=== PATIENT | female | born 1960 | race Caucasian/White ===

== ENCOUNTER 2018-08-29 12:02 | Emergency (ER) | payer BC ==
--- NOTE | 2018-08-29 13:25 | ED ---
General Adult HPI - General Chief complaint: Eye Problems Stated complaint: Visual Disturbance, Headache Time Seen by Provider: 08/29/18 12:18 Source: patient, RN notes reviewed Mode of arrival: ambulatory Limitations: no limitations - History of Present Illness Initial comments: Patient is a 58-year-old female presented to the emergency room today with a chief complaint of headache and visual change. Patient does admit that 2 days ago she noticed that she had a halo type appearance on the lateral portion of the left eye. She states that her last a few hours and then eventually went away. She states that today she woke up with a migraine headache. She states the migraine is consistent with migraine headaches that she's had in the past. She states she's had some nausea, photosensitivity a long with a headache. She states is consistent with her migraines. She states approximately at 12:00 she began noticing the visual changes that she experienced 2 days ago. She states again she was experiencing a halo and blurriness out of the lateral portion of the left eye. Patient states that she did take her migraine medication of Fioricet along with an aspirin. She states visual symptoms resolved shortly after taking this medication. She states her headache is also gone at this time. She states there are no symptoms currently. She states she was just concerned as there is a family history of brain aneurysm. Patient denies any recent fever, chills, shortness of breath, chest pain, back pain, abdominal pain , nausea or vomiting, numbness or tingling, or any other complaints. - Related Data Home Medications Medication Instructions Recorded Confirmed Butalb/Acetaminophen/Caffeine 1 tab PO DAILY PRN 08/18/16 08/29/18 [Fioricet 50-300-40 mg Capsule] Atorvastatin [Lipitor] 10 mg PO HS 08/29/18 08/29/18 Biotin 5 mg PO DAILY 08/29/18 08/29/18 Calcium Carbonate [Calcium] 600 mg PO DAILY 08/29/18 08/29/18 Cholecalciferol [Vitamin D3] 1,000 unit PO DAILY 08/29/18 08/29/18 [place]-3 Fatty Acids/Fish Oil [Fish 1 cap PO DAILY 08/29/18 08/29/18 Oil 1,000 mg Softgel] Allergies Allergy/AdvReac Type Severity Reaction Status Date / Time cat dander Allergy Unknown Verified 11/11/18 13:23 Milk Containing Products Allergy Nausea & Verified 08/29/18 13:23 [Dairy] Vomiting orange Allergy Rash/Hives Verified 08/29/18 13:23 Sulfa (Sulfonamide Allergy Rash/Hives Verified 08/29/18 13:23 Antibiotics) tomato Allergy Rash/Hives Verified 08/29/18 13:23 Review of Systems ROS Statement: Those systems with pertinent positive or pertinent negative responses have been documented in the HPI. ROS Other: All systems not noted in ROS Statement are negative. Past Medical History Past Medical History: Hyperlipidemia, Skin Disorder Additional Past Medical History / Comment(s): ABDOMINAL PAIN, BURNING, HYPOGLYCEMIA, HX PSORIASIS, HX OF MIGRAINES, HEART MURMUR, History of Any Multi-Drug Resistant Organisms: None Reported Past Surgical History: Section, Hysterectomy Additional Past Surgical History / Comment(s): SKIN BX Past Anesthesia/Blood Transfusion Reactions: Previous Problems w/ Anesthesia Additional Past Anesthesia/Blood Transfusion Reaction / Comment(s): HYPOTENSION, Past Psychological History: No Psychological Hx Reported Smoking Status: Former smoker Past Alcohol Use History: None Reported Past Drug Use History: None Reported - Past Family History Mother Family Medical History: Pulmonary Embolus General Exam - General Exam Comments Initial Comments: General: The patient is awake and alert, in no distress, and does not appear acutely ill. Eye: Pupils are equal, round and reactive to light. Extra-ocular movements are intact. No nystagmus. There is normal conjunctiva bilaterally. No signs of icterus. Ears, nose, mouth and throat: There are moist mucous membranes and no oral lesions. Neck: The neck is supple, there is no tenderness or JVD. Cardiovascular: There is a regular rate and rhythm. No murmur, rub or gallop is appreciated. Respiratory: Lungs are clear to auscultation, respirations are non-labored, breath sounds are equal. No wheezes, stridor, rales, or rhonchi. Musculoskeletal: Normal ROM, no tenderness. Sensation intact. Strength 5/5. Pulses equal bilaterally 2+. Neurological: A&O x 3. CN II-XII intact, There are no obvious motor or sensory deficits. Coordination appears grossly intact. Speech is normal. Skin: Skin is warm and dry and no rashes or lesions are noted. Psychiatric: Cooperative, appropriate mood & affect, normal judgment. Limitations: no limitations Course Vital Signs 08/29/18 08/29/18 12:12 14:01 Temperature 98.6 F Pulse Rate 63 52 L Respiratory 16 20 Rate Blood Pressure 147/78 136/83 O2 Sat by Pulse 99 100 Oximetry Medical Decision Making - Medical Decision Making CT with and without contrast obtained of the head negative for any acute abnormalities. Labs reviewed. Patient's been asymptomatic here in emergency room. Patient advised to follow-up with sand slinger operator tomorrow. Advised return if symptoms recur. Otherwise follow-up family physician over the next 2 days. - Lab Data Result diagrams: 08/29/18 14:00 08/29/18 14:00 Lab Results 08/29/18 08/29/18 Range/Units 14:00 14:00 WBC 5.3 (3.8-10.6) k/uL RBC 4.96 (3.80-5.40) m/uL Hgb 14.4 (11.4-16.0) gm/dL Hct 43.9 (34.0-46.0) % MCV 88.6 (80.0-100.0) fL MCH 29.1 (25.0-35.0) pg MCHC 32.9 (31.0-37.0) g/dL RDW 13.2 (11.5-15.5) % Plt Count 214 (150-450) k/uL Neutrophils % 68 % Lymphocytes % 23 % Monocytes % 5 % Eosinophils % 2 % Basophils % 1 % Neutrophils # 3.6 (1.3-7.7) k/uL Lymphocytes # 1.2 (1.0-4.8) k/uL Monocytes # 0.3 (0-1.0) k/uL Eosinophils # 0.1 (0-0.7) k/uL Basophils # 0.0 (0-0.2) k/uL Sodium 141 (137-145) mmol/L Potassium 4.3 (3.5-5.1) mmol/L Chloride 105 (98-107) mmol/L Carbon Dioxide 30 (22-30) mmol/L Anion Gap 6 mmol/L BUN 16 (7-17) mg/dL Creatinine 0.73 (0.52-1.04) mg/dL Est GFR (CKD-EPI)AfAm >90 (>60 ml/min/1.73 sqM) Est GFR (CKD-EPI)NonAf >90 (>60 ml/min/1.73 sqM) Glucose 95 (74-99) mg/dL Calcium 9.7 (8.4-10.2) mg/dL Total Bilirubin 0.3 (0.2-1.3) mg/dL AST 37 H (14-36) U/L ALT 47 (9-52) U/L Alkaline Phosphatase 64 (38-126) U/L Total Protein 7.2 (6.3-8.2) g/dL Albumin 4.3 (3.5-5.0) g/dL Disposition Clinical Impression: Migraine, Visual disturbance Disposition: HOME SELF-CARE Condition: Good Instructions: Migraine Headache (ED) Additional Instructions: Please follow-up with sand slinger operator tomorrow as discussed. Please call family doctor over the next 2 days. Return to emergency room if any symptoms increase or worsen. Is patient prescribed a controlled substance at d/c from ED?: No Referrals: Haseeb Harp DO [Primary Care Provider] - 1-2 days Judie Carey MD [STAFF PHYSICIAN] - 1-2 days Time of Disposition: 14:54
--- NOTE | 2018-08-29 13:31 | CT ---
EXAMINATION TYPE: CT brain wo con DATE OF EXAM: 08/29/2018 COMPARISON: Previous study dated 05/04/2013. HISTORY: Migraines, vision changes CT DLP: 1191.4 mGycm Automated exposure control for dose reduction was used. FINDINGS: Central structures are midline. There is no evidence of hydrocephalus. No acute focal lesion, mass ef fect or midline shift is seen. I do not see evidence of intracranial blood. Visualized portions of the paranasal sinuses and mastoids are clear. The bony calvarium is intact. IMPRESSION: NO ACUTE INTRACRANIAL ABNORMALITY.
[2018-08-29 14:01] VITALS: RESP 20
[2018-08-29 14:12] LABS: Basophils % (A) 1 %; Eosinophils # (A) 0.1 k/uL (0-0.7); Eosinophils % (A) 2 %; HCT 43.9 % (34.0-46.0); HGB 14.4 gm/dL (11.4-16.0); Lymphocytes # (A) 1.2 k/uL (1.0-4.8); Lymphocytes % (A) 23 %; MCH 29.1 pg (25.0-35.0); MCHC 32.9 g/dL (31.0-37.0); MCV 88.6 fL (80.0-100.0); Mean Platelet Volume 7.8; Monocytes # (A) 0.3 k/uL (0-1.0); Monocytes % (A) 5 %; Neutrophils # (A) 3.6 k/uL (1.3-7.7); Neutrophils % (A) 68 %; Platelet Count 214 k/uL (150-450); RBC 4.96 m/uL (3.80-5.40); RDW 13.2 % (11.5-15.5); WBC 5.3 k/uL (3.8-10.6)
[2018-08-29 14:25] LABS: ALT 47 U/L (9-52); AST 37 U/L (14-36); Albumin 4.3 g/dL (3.5-5.0); Alkaline Phosphatase 64 U/L (38-126); Anion Gap 6 mmol/L; Blood Urea Nitrogen 16 mg/dL (7-17); Calcium 9.7 mg/dL (8.4-10.2); Carbon Dioxide 30 mmol/L (22-30); Chloride 105 mmol/L (98-107); Glucose 95 mg/dL (74-99); Potassium 4.3 mmol/L (3.5-5.1); Sodium 141 mmol/L (137-145); Total Bilirubin 0.3 mg/dL (0.2-1.3); Total Protein 7.2 g/dL (6.3-8.2)
--- NOTE | 2018-08-29 14:41 | CT ---
EXAMINATION TYPE: CT angio head DATE OF EXAM: 08/29/2018 COMPARISON: None HISTORY: Visual disturbance, headaches CT DLP: 868 mGycm Automated exposure control for dose reduction was used. CONTRAST: Performed with IV Contrast, patient injected with 100 mL of Isovue 370. There are 3-D post processed images. FINDINGS: There is arterial flow in the anterior middle and posterior cerebral arteries. There is arterial flow in the vertebrobasilar artery system. There is bilateral patency of the vertebral arteries. There is bilateral arterial flow in the intracranial internal carotid arteries. There is normal contrast opac ification of the venous sinuses. I see no evidence of intracranial arterial stenosis. I see no eviden ce of aneurysm or neovascularity. There is no mass effect. IMPRESSION: NEGATIVE CT ANGIOGRAM OF THE BRAIN.
[2018-08-29 15:04] VITALS: BP 145/65; PULSE 55; TEMP 98.3
== END 2018-08-29 15:04 | disposition home or self-care (01) ==
LOC: EC 12:02
DX: G43.909 Migraine, unspecified, not intractable, without status migrainosus (principal); H53.9 Unspecified visual disturbance; E78.5 Hyperlipidemia, unspecified; Z79.899 Other long term (current) drug therapy; Z88.2 Allergy status to sulfonamides; Z91.09 Other allergy status, other than to drugs and biological substances; Z91.011 Allergy to milk products; Z91.018 Allergy to other foods; Z87.891 Personal history of nicotine dependence
CPT/HCPCS: 36415; 80053; 85025; 70496; 70450; 99284; Q9967

== ENCOUNTER 2020-08-05 19:53 | Inpatient (IN) | payer BC ==
[2020-08-05] MEDS ORDERED: BUTALB/APAP/CAFF 50-325-40MG TAB PO STA (20:19)
[2020-08-05] MEDS ORDERED: SODIUM CHLORIDE 0.9% 500 ML 500 ML IV STA (20:19)
[2020-08-05 20:58] LABS: Basophils # (A) 0.1 k/uL (0-0.2); Basophils % (A) 1 %; Eosinophils # (A) 0.1 k/uL (0-0.7); Eosinophils % (A) 2 %; Lymphocytes % (A) 31 %; MCH 29.1 pg (25.0-35.0); MCHC 31.8 g/dL (31.0-37.0); MCV 91.4 fL (80.0-100.0); Mean Platelet Volume 8.5; Monocytes # (A) 0.4 k/uL (0-1.0); Monocytes % (A) 6 %; Neutrophils # (A) 3.9 k/uL (1.3-7.7); Neutrophils % (A) 60 %; Platelet Count 205 k/uL (150-450); RBC 4.81 m/uL (3.80-5.40); WBC 6.6 k/uL (3.8-10.6)
[2020-08-05 21:07] LABS: Partial Thromboplastin Time 22.7 sec (22.0-30.0); Prothrombin Time 9.9 sec (9.0-12.0)
[2020-08-05 21:09] LABS: Albumin 4.1 g/dL (3.5-5.0); Calcium 9.4 mg/dL (8.4-10.2); Total Bilirubin 0.3 mg/dL (0.2-1.3); Total Protein 6.7 g/dL (6.3-8.2)
--- NOTE | 2020-08-05 21:09 | XR ---
EXAMINATION TYPE: XR chest 2V DATE OF EXAM: 08/05/2020 COMPARISON: NONE HISTORY: Short of breath TECHNIQUE: 2 views FINDINGS: Heart is normal. Lungs are clear of infiltrate. There are no hilar masses. Mediastinum is n ormal. There is some pleural thickening at the lung apices. IMPRESSION: Mild pleural scarring at the lung apices. No acute lung disease. Normal heart.
[2020-08-05] MEDS ORDERED: NITROGLYCERIN SL TABS 0.4 MG TAB SUBLINGUAL PRN (22:11)
--- NOTE | 2020-08-05 22:11 | ED ---
SOB HPI - General Source: patient Mode of arrival: ambulatory Limitations: no limitations <Kaci Chopra - Last Filed: 08/06/20 00:13> <Alexa Mcmahan - Last Filed: 08/07/20 13:26> - General Chief Complaint: Shortness of Breath Stated Complaint: Poss Asthma Attack Time Seen by Provider: 08/05/20 20:05 - History of Present Illness Initial Comments: Patient is a 60-year-old female presenting to emergency Department with complaints of an episode of shortness of breath that happened while she was cooking dinner just prior to arrival. Patient states she has felt fine all day, was cooking dinner and then had an episode of chest tightness and shortness of breath that lasted about 2-3 minutes. Patient states she had a really hard time catching her breath during this time. She denies having any sharp chest pains but states she did feel tight and "compressed." Patient states now she is no longer having that as it only lasted a few minutes but she is feeling some mild nausea and a headache. She states she does have a history of migraines and did not take her Fioricet before she left for the hospital. Patient denies a history of heart disease, she does take a statin for elevated cholesterol. She denies any new medications. She states it has been a long time since her recent stress test. She denies history of asthma or COPD. Eyes any recent fever, chills, cough, congestion, abdominal pain, vomiting or diarrhea. She has no further complaints at this time. Upon arrival to the ER, her vital signs are stable. (Kaci Chopra) - Related Data Home Medications Medication Instructions Recorded Confirmed Butalb/Acetaminophen/Caffeine 1 tab PO DAILY PRN 08/18/16 08/05/20 [Fioricet 50-300-40 mg Capsule] Atorvastatin [Lipitor] 10 mg PO HS 08/29/18 08/05/20 Biotin 5 mg PO DAILY 08/29/18 08/05/20 Cholecalciferol [Vitamin D3] 1,000 unit PO DAILY 08/29/18 08/05/20 [place]-3 Fatty Acids/Fish Oil [Fish 1 cap PO DAILY 08/29/18 08/05/20 Oil 1,000 mg Softgel] Vitamin E 100 unit PO DAILY 08/05/20 08/05/20 Allergies Allergy/AdvReac Type Severity Reaction Status Date / Time cat dander Allergy Unknown Verified 08/05/20 22:28 Milk Containing Products Allergy Nausea & Verified 08/05/20 22:28 [Dairy] Vomiting orange Allergy Rash/Hives Verified 08/05/20 22:28 Sulfa (Sulfonamide Allergy Rash/Hives Verified 08/05/20 22:28 Antibiotics) tomato Allergy Rash/Hives Verified 08/05/20 22:28 Review of Systems ROS Other: All systems not noted in ROS Statement are negative. <Kaci Chopra - Last Filed: 08/06/20 00:13> ROS Other: All systems not noted in ROS Statement are negative. <Alexa Mcmahan - Last Filed: 08/07/20 13:26> ROS Statement: Those systems with pertinent positive or pertinent negative responses have been documented in the HPI. Past Medical History Past Medical History: Hyperlipidemia, Skin Disorder Additional Past Medical History / Comment(s): ABDOMINAL PAIN, BURNING, HYPOGLYCEMIA, HX PSORIASIS, HX OF MIGRAINES, HEART MURMUR, History of Any Multi-Drug Resistant Organisms: None Reported Past Surgical History: Section, Hysterectomy Additional Past Surgical History / Comment(s): SKIN BX Past Anesthesia/Blood Transfusion Reactions: Previous Problems w/ Anesthesia Additional Past Anesthesia/Blood Transfusion Reaction / Comment(s): HYPOTENSION, Past Psychological History: No Psychological Hx Reported Smoking Status: Never smoker Past Alcohol Use History: None Reported Past Drug Use History: None Reported - Past Family History Mother Family Medical History: Pulmonary Embolus <Kaci Chopra - Last Filed: 08/06/20 00:13> General Exam Limitations: no limitations <Kaci Chopra - Last Filed: 08/06/20 00:13> - General Exam Comments Initial Comments: GENERAL: Patient is well-developed and well-nourished. Patient is nontoxic and in no acute distress. HEAD: Atraumatic, normocephalic. EYES: Pupils equal round and reactive to light, extraocular movements intact, sclera anicteric, conjunctiva are normal. Eyelids were unremarkable. ENT: TMs normal, nares patent, oropharynx clear without exudates. Moist mucous membranes. NECK: Normal range of motion, supple without lymphadenopathy or JVD. LUNGS: Unlabored respirations. Breath sounds clear to auscultation bilaterally and equal. No wheezes rales or rhonchi. HEART: Regular rate and rhythm without murmurs, rubs or gallops. ABDOMEN: Soft, nontender, normoactive bowel sounds. No guarding, no rebound. No masses appreciated. : Deferred MUSCULOSKELETAL: Normal extremities with adequate strength and normal range of motion, no pitting or edema. No clubbing or cyanosis. NEUROLOGICAL: Patient is alert and oriented x 3. Motor and sensory are also intact. Cranial nerves II through XII grossly intact. Symmetrical smile. Normal speech, normal gait. PSYCH: Normal mood, normal affect. SKIN: Warm, Dry, normal turgor, no rashes or lesions noted. (Kaci Chopra) Course Vital Signs 08/05/20 08/05/20 19:58 22:06 Temperature 97.5 F L Pulse Rate 52 L 65 Respiratory 16 17 Rate Blood Pressure 168/94 131/76 O2 Sat by Pulse 100 99 Oximetry Medical Decision Making - Lab Data Result diagrams: 08/05/20 20:48 08/05/20 20:48 <Kaci Chopra - Last Filed: 08/06/20 00:13> - Lab Data Result diagrams: 08/05/20 20:48 08/05/20 20:48 <Alexa Mcmahan - Last Filed: 08/07/20 13:26> - Medical Decision Making Patient is a 60-year-old female presenting after 2-3 minute episode of shortness of breath and chest tightness while she was cooking dinner. Her vital signs are stable upon arrival. Her exam is unremarkable. EKG shows no acute process. Chest x-ray is normal. Abdomen also completely unremarkable, troponin is negative. I discussed with patient that given her symptoms, recommended admission for serial troponins and cardiac consult. Patient is agreement with this plan and care. Case discussed with Dr. Mcmahan. Patient accepted by Dr. Georges. (Kaci Chopra) I was available for consultation in the emergency department. The history and physical exam were done by the midlevel provider. I was consulted for this patie nts care. I reviewed the case with the midlevel provider and based on their presentation of the patient, I agree with the assessment, medical decision making and plan of care as documented. I spoke with Dr. Georges who agreed to admit the patient. Chart was dictated using [employer] dictation software. Attempts were made to correct any dictation errors however some typographical errors may persist. Patient was seen during a national state of emergency due to the Covid-19 pandemic. (Alexa Mcmahan) - Lab Data Lab Results 08/05/20 08/05/20 08/05/20 Range/Units 20:48 20:48 20:48 WBC 6.6 (3.8-10.6) k/uL RBC 4.81 (3.80-5.40) m/uL Hgb 14.0 (11.4-16.0) gm/dL Hct 44.0 (34.0-46.0) % MCV 91.4 (80.0-100.0) fL MCH 29.1 (25.0-35.0) pg MCHC 31.8 (31.0-37.0) g/dL RDW 13.0 (11.5-15.5) % Plt Count 205 (150-450) k/uL Neutrophils % 60 % Lymphocytes % 31 % Monocytes % 6 % Eosinophils % 2 % Basophils % 1 % Neutrophils # 3.9 (1.3-7.7) k/uL Lymphocytes # 2.0 (1.0-4.8) k/uL Monocytes # 0.4 (0-1.0) k/uL Eosinophils # 0.1 (0-0.7) k/uL Basophils # 0.1 (0-0.2) k/uL PT 9.9 (9.0-12.0) sec INR 1.0 (<1.2) APTT 22.7 (22.0-30.0) sec Sodium 135 L (137-145) mmol/L Potassium 4.0 (3.5-5.1) mmol/L Chloride 103 (98-107) mmol/L Carbon Dioxide 28 (22-30) mmol/L Anion Gap 4 mmol/L BUN 17 (7-17) mg/dL Creatinine 0.83 (0.52-1.04) mg/dL Est GFR (CKD-EPI)AfAm 89 (>60 ml/min/1.73 sqM) Est GFR (CKD-EPI)NonAf 77 (>60 ml/min/1.73 sqM) Glucose 98 (74-99) mg/dL Calcium 9.4 (8.4-10.2) mg/dL Total Bilirubin 0.3 (0.2-1.3) mg/dL AST 36 (14-36) U/L ALT 28 (4-34) U/L Alkaline Phosphatase 61 (38-126) U/L Troponin I (0.000-0.034) ng/mL NT-Pro-B Natriuret Pep pg/mL Total Protein 6.7 (6.3-8.2) g/dL Albumin 4.1 (3.5-5.0) g/dL Triglycerides (<150) mg/dL Cholesterol (<200) mg/dL LDL Cholesterol, Calc (0-99) mg/dL HDL Cholesterol (40-60) mg/dL 08/05/20 08/05/20 08/05/20 Range/Units 20:48 20:48 23:46 WBC (3.8-10.6) k/uL RBC (3.80-5.40) m/uL Hgb (11.4-16.0) gm/dL Hct (34.0-46.0) % MCV (80.0-100.0) fL MCH (25.0-35.0) pg MCHC (31.0-37.0) g/dL RDW (11.5-15.5) % Plt Count (150-450) k/uL Neutrophils % % Lymphocytes % % Monocytes % % Eosinophils % % Basophils % % Neutrophils # (1.3-7.7) k/uL Lymphocytes # (1.0-4.8) k/uL Monocytes # (0-1.0) k/uL Eosinophils # (0-0.7) k/uL Basophils # (0-0.2) k/uL PT (9.0-12.0) sec INR (<1.2) APTT (22.0-30.0) sec Sodium (137-145) mmol/L Potassium (3.5-5.1) mmol/L Chloride (98-107) mmol/L Carbon Dioxide (22-30) mmol/L Anion Gap mmol/L BUN (7-17) mg/dL Creatinine (0.52-1.04) mg/dL Est GFR (CKD-EPI)AfAm (>60 ml/min/1.73 sqM) Est GFR (CKD-EPI)NonAf (>60 ml/min/1.73 sqM) Glucose (74-99) mg/dL Calcium (8.4-10.2) mg/dL Total Bilirubin (0.2-1.3) mg/dL AST (14-36) U/L ALT (4-34) U/L Alkaline Phosphatase (38-126) U/L Troponin I <0.012 <0.012 (0.000-0.034) ng/mL NT-Pro-B Natriuret Pep 60 pg/mL Total Protein (6.3-8.2) g/dL Albumin (3.5-5.0) g/dL Triglycerides (<150) mg/dL Cholesterol (<200) mg/dL LDL Cholesterol, Calc (0-99) mg/dL HDL Cholesterol (40-60) mg/dL 08/06/20 08/06/20 Range/Units 02:33 02:33 WBC (3.8-10.6) k/uL RBC (3.80-5.40) m/uL Hgb (11.4-16.0) gm/dL Hct (34.0-46.0) % MCV (80.0-100.0) fL MCH (25.0-35.0) pg MCHC (31.0-37.0) g/dL RDW (11.5-15.5) % Plt Count (150-450) k/uL Neutrophils % % Lymphocytes % % Monocytes % % Eosinophils % % Basophils % % Neutrophils # (1.3-7.7) k/uL Lymphocytes # (1.0-4.8) k/uL Monocytes # (0-1.0) k/uL Eosinophils # (0-0.7) k/uL Basophils # (0-0.2) k/uL PT (9.0-12.0) sec INR (<1.2) APTT (22.0-30.0) sec Sodium (137-145) mmol/L Potassium (3.5-5.1) mmol/L Chloride (98-107) mmol/L Carbon Dioxide (22-30) mmol/L Anion Gap mmol/L BUN (7-17) mg/dL Creatinine (0.52-1.04) mg/dL Est GFR (CKD-EPI)AfAm (>60 ml/min/1.73 sqM) Est GFR (CKD-EPI)NonAf (>60 ml/min/1.73 sqM) Glucose (74-99) mg/dL Calcium (8.4-10.2) mg/dL Total Bilirubin (0.2-1.3) mg/dL AST (14-36) U/L ALT (4-34) U/L Alkaline Phosphatase (38-126) U/L Troponin I <0.012 (0.000-0.034) ng/mL NT-Pro-B Natriuret Pep pg/mL Total Protein (6.3-8.2) g/dL Albumin (3.5-5.0) g/dL Triglycerides 56 (<150) mg/dL Cholesterol 154 (<200) mg/dL LDL Cholesterol, Calc 81 (0-99) mg/dL HDL Cholesterol 62 H (40-60) mg/dL - EKG Data EKG Comments: Sinus bradycardia, left axis deviation, no signs of acute ischemia. Ventricular rate 52, MT interval 138, QTc 446. (Kaci Chopra) Disposition Decision Date: 08/05/20 Decision Time: 22:11 <Kaci Chopra - Last Filed: 08/06/20 00:13> <Alexa Mcmahan - Last Filed: 08/07/20 13:26> Clinical Impression: Chest tightness, Dyspnea Disposition: ADMITTED IP TO THIS [facility] Condition: Stable
[2020-08-06 03:42] LABS: Cholesterol 154 mg/dL (<200); HDL Cholesterol 62 mg/dL (40-60); LDL Cholesterol,Calculated 81 mg/dL (0-99); Triglycerides 56 mg/dL (<150)
[2020-08-06] MEDS ORDERED: AMINOPHYLLINE 500 MG/20 ML VIAL IV PRN (08:16)
[2020-08-06] MEDS ORDERED: CAFFEINE CITRATE 60 MG/3 ML VIAL IV PRN (08:16)
[2020-08-06] MEDS ORDERED: REGADENOSON 0.4 MG/5 ML SYRINGE IV ONE (08:16)
[2020-08-06 08:19] VITALS: RESP 16
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
[2020-08-06] MEDS ORDERED: ASPIRIN 325 MG TAB PO SCH (09:00)
--- NOTE | 2020-08-06 12:45 | NM ---
EXAMINATION TYPE: NM stress lexiscan cardiolite DATE OF EXAM: 08/06/2020 COMPARISON: NONE HISTORY: Chest pain TECHNIQUE: After the intravenous administration of 9.8 mCi Tc 99m Sestamibi - Cardiolite resting SPE CT images acquired 70 minutes post injection. The patient received 0.4mg Lexiscan, 27.8 mCi Tc 99m Sestamibi - Stress images obtained [address] injection FINDINGS: Review of stress and rest SPECT images demonstrates some mild decreased left ventricular apical uptak e on stress as compared to rest images. Gated analysis shows normal wall motion with an estimated le ft ventricular ejection fraction of 65 %. IMPRESSION: Apical left ventricular myocardial ischemia, consider echo correlation for elevated ejection fraction
--- NOTE | 2020-08-06 13:34 | ECHOF ---
Referral Reason:LV function MEASUREMENTS -------- HEIGHT: 167.6 cm WEIGHT: 68.0 kg BP: 130/75 RVIDd: 2.8 cm (< 3.3) IVSd: 1.4 cm (0.6 - 1.1) LVIDd: 3.9 cm (3.9 - 5.3) LVPWd: 1.5 cm (0.6 - 1.1) IVSs: 1.7 cm LVIDs: 2.7 cm LVPWs: 2.1 cm LAESV Index (A-L): 28.66 ml/m MV E Julian: 0.89 m/s MV DecT: 203 ms MV A Julian: 0.69 m/s MV E/A Ratio: 1.29 RAP: 5.00 mmHg RVSP: 38.14 mmHg FINDINGS -------- Resting bradycardia (HR<60bpm). This was a technically adequate study. The left ventricular size is normal. There is moderate concentric left ventricular hypertrophy. O verall left ventricular systolic function is normal with, an EF between 55 - 60 %. The diastolic fi lling pattern is normal for the age of the patient 11.05. The right ventricle is normal in size. Normal LA size by volume 22+/-6 ml/m2. The right atrial size is normal. Interatrial and interventricular septum intact. The aortic valve is trileaflet and appears structurally normal. There is mild aortic valve sclerosi s. There is no evidence of aortic regurgitation. There is no evidence of aortic stenosis. [id number] mitral regurgitation is present. Mild tricuspid regurgitation present. There is mild pulmonary hypertension. The right ventricular systolic pressure, as measured by Doppler, is 38.14mmHg. There is no pulmonic regurgitation present. The aortic root size is normal. IVC Not well visulized. There is a trivial pericardial effusion present. CONCLUSIONS -------- 1. The left ventricular size is normal. 2. There is moderate concentric left ventricular hypertrophy. 3. Overall left ventricular systolic function is normal with, an EF between 55 - 60 %. 4. The diastolic filling pattern is normal for the age of the patient 11.05 5. Normal LA size by volume 22+/-6 ml/m2. 6. There is mild aortic valve sclerosis. 7. Hkmy-vj-yixtimkc mitral regurgitation is present. 8. Mild tricuspid regurgitation present. 9. There is mild pulmonary hypertension. 10. The right ventricular systolic pressure, as measured by Doppler, is 38.14mmHg. REGULATORY COORDINATOR: Susana Andrade RDCS
--- NOTE | 2020-08-06 13:55 | P.STRESS ---
- Stress Test Note Stress Test Results/Findings: Exam Performed: NM stress lexiscan cardiolite Exam Date: 08/06/20 Reason for Exam: Chest Pain Height: 5 ft 6 in Weight: 68.04 kg Protocol: Lexiscan Stage: na Duration of Exercise: na Resting Heart Rate: 46 Resting Blood Pressure: 124/72 Maximum Achieved Heart Rate: 81 Maximum Achieved Blood Pressure: 132/72 85% PMHR: 135 100% PMHR: 159 METS: na Technologist Comment: Stress Test Results/Findings: At baseline EKG showed ormal sinus rhythm, normal axis,nonspecific T-wave in versions in aVL, AVR, V1 Patient recieved IV infusion of Lexiscan 0.4mg and at peak infusion EKG showed o significant EKG changes from baseline. Conclusions: 1. Normal EKG response to Lexiscan infusion 2. Nuclear imaging to be reported separately.
[2020-08-06] MEDS ORDERED: ALPRAZolam 0.25 MG TAB PO PRN (14:25)
[2020-08-06] MEDS ORDERED: ALPRAZolam 0.5 MG TAB PO PRN (14:25)
[2020-08-06] MEDS ORDERED: NITROGLYCERIN SL TABS 0.4 MG TAB SUBLINGUAL PRN (14:25)
[2020-08-06] MEDS ORDERED: BUTALB/APAP/CAFF 50-325-40MG TAB PO PRN (14:58)
--- NOTE | 2020-08-06 16:17 | P.HPIM ---
History of Present Illness H&P Date: 08/06/20 Chief Complaint: Chest pain, shortness of breath This is a 60-year-old female with past medical history of hyperlipidemia, hyperglycemia, psoriasis, migraines, extensive ex-smoker; smoked 1-1/2 packs per day 22 years, presented to the ER with complaints of chest pain accompanied by shortness of breath. Patient stated she was standing up in the kitchen "salad spinning", developed abrupt left-sided nonradiating "tight" chest pain with grasping shortness of breath accompanied by nausea and generalized weakness. Attempted to lie down with no improvement, 2-3 minutes and presented to the ER. States she was also cooking with some spices and wondered if maybe it was an ALLERGIC reaction. Patient also reported developing a migraine post episode and took a fioicet prior to arrival. Denies vomiting, abdominal pain, cough, congestion, fever or chills. Chest x-ray reported mild pleural scarring of the lung apexes, no acute lung disease. EKG reported sinus bradycardia with left axis deviation. Troponin is negative 2, third pending. Chemistry, coagulation, hematology unremarkable. Echo pending. Review of Systems ROS Statement: Those systems with pertinent positive or pertinent negative responses have been documented in the HPI. ROS Other: All systems not noted in ROS Statement are negative. Past Medical History Past Medical History: Hyperlipidemia, Skin Disorder Additional Past Medical History / Comment(s): ABDOMINAL PAIN, BURNING, HYPOGLYCEMIA, HX PSORIASIS, HX OF MIGRAINES, HEART MURMUR, History of Any Multi-Drug Resistant Organisms: None Reported Past Surgical History: Section, Hysterectomy Additional Past Surgical History / Comment(s): SKIN BX Past Anesthesia/Blood Transfusion Reactions: Previous Problems w/ Anesthesia Additional Past Anesthesia/Blood Transfusion Reaction / Comment(s): HYPOTENSION, Past Psychological History: No Psychological Hx Reported Smoking Status: Never smoker Past Alcohol Use History: None Reported Past Drug Use History: None Reported - Past Family History Mother Family Medical History: Pulmonary Embolus Medications and Allergies Home Medications Medication Instructions Recorded Confirmed Type Butalb/Acetaminophen/Caffeine 1 tab PO DAILY PRN 08/18/16 08/05/20 History [Fioricet 50-300-40 mg Capsule] Atorvastatin [Lipitor] 10 mg PO HS 08/29/18 08/05/20 History Biotin 5 mg PO DAILY 08/29/18 08/05/20 History Cholecalciferol [Vitamin D3] 1,000 unit PO DAILY 08/29/18 08/05/20 History [place]-3 Fatty Acids/Fish Oil [Fish 1 cap PO DAILY 08/29/18 08/05/20 History Oil 1,000 mg Softgel] Vitamin E 100 unit PO DAILY 08/05/20 08/05/20 History Allergies Allergy/AdvReac Type Severity Reaction Status Date / Time cat dander Allergy Unknown Verified 08/05/20 22:28 Milk Containing Products Allergy Nausea & Verified 08/05/20 22:28 [Dairy] Vomiting orange Allergy Rash/Hives Verified 08/05/20 22:28 Sulfa (Sulfonamide Allergy Rash/Hives Verified 08/05/20 22:28 Antibiotics) tomato Allergy Rash/Hives Verified 08/05/20 22:28 Physical Exam Vitals: Vital Signs Temp Pulse Pulse Resp BP BP BP 08/06/20 09:00 16 08/06/20 08:18 98 F 51 L 16 144/82 08/06/20 03:10 45 L 18 08/06/20 03:00 97.5 F L 45 L 18 130/75 08/05/20 22:47 97.5 F L 50 L 18 121/89 08/05/20 22:06 65 17 131/76 08/05/20 19:58 97.5 F L 52 L 16 168/94 Pulse Ox 08/06/20 09:00 08/06/20 08:18 99 08/06/20 03:10 08/06/20 03:00 98 08/05/20 22:47 99 08/05/20 22:06 99 08/05/20 19:58 100 Intake and Output 08/05/20 08/06/20 08/06/20 22:59 06:59 14:59 Other: Voiding Method Toilet Toilet # Voids 1 2 Weight 68.039 kg PHYSICAL EXAM: VITAL SIGNS: [As above] GENERAL: Sitting up in bed, no acute test HEENT: Conjunctivae normal. eyes normal. NECK: No JVD. No thyroid enlargement. No LNs CARDIOVASCULAR: S1, S2 regular. No murmur RESPIRATION: Unlabored ,Breath sounds diminished in the bases. No rhonchi or c rackles. No bronchial breathing. ABDOMEN: Soft, nontender . No guarding. no masses palpable. No ascites, No hepatosplenomegaly.Bowel sounds heard. LEGS: No edema. no swelling PSYCHIATRY: Alert and oriented X3, mood and affect normal. NERVOUS SYSTEM: Cranial N 2-12 grossly normal. Moves all 4 limbs. No focal deficits. Strength and sensation grossly intact.. Skin: Warm and dry, no rash Lymphatic system. No LN neck axilla. Results CBC & Chem 7: 08/05/20 20:48 08/05/20 20:48 Labs: Abnormal Lab Results - Last 24 Hours (Table) 08/05/20 08/06/20 Range/Units 20:48 02:33 Sodium 135 L (137-145) mmol/L HDL Cholesterol 62 H (40-60) mg/dL Thrombosis Risk Factor Assmnt - Choose All That Apply Any of the Below Risk Factors Present?: No Each Risk Factor Represents 2 Points: Age 61-74 years Other congenital or acquired thrombophilia - If yes, enter type in comment: No Thrombosis Risk Factor Assessment Total Risk Factor Score: 2 Thrombosis Risk Factor Assessment Level: Low Risk Assessment and Plan Assessment: Acute Chest pain with accompanying shortness of breath, ruling out acute coronary syndrome Sinus bradycardia, asymptomatic Hyperlipidemia History of extensive smoking, 1-1/2 packs per day 22 years Plan: Continue on current medication regime ,monitoring and symptomatic treatment. Echo pending. Evaluated by cardiology and stress test scheduled. Home meds have been reviewed and resumed accordingly. GI and DVT prophylaxis in place. The impression and plan of care has been dictated as directed. : I performed a history and examination of this patient, discussed the same with the dictator. I agree with the dictator's note ,documented as a scribe. Any additional findings or plans will be noted.
[2020-08-06] MEDS: PANTOPRAZOLE 40 MG/10 ML VIAL IVP SCH (17:50)
[2020-08-06] MEDS: ATORVASTATIN 10 MG TAB PO SCH (20:32)
[2020-08-07] MEDS: ASPIRIN 81 MG PO SCH (08:01)
[2020-08-07] MEDS: PANTOPRAZOLE 40 MG/10 ML VIAL IVP SCH (08:01)
--- NOTE | 2020-08-07 08:12 | EST ---
Stress Test Results/Findings: Exam Performed: NM stress lexiscan cardiolite Exam Date: 08/06/20 Reason for Exam: Chest Pain Height: 5 ft 6 in Weight: 68.04 kg Protocol: Lexiscan Stage: na Duration of Exercise: na Resting Heart Rate: 46 Resting Blood Pressure: 124/72 Maximum Achieved Heart Rate: 81 Maximum Achieved Blood Pressure: 132/72 85% PMHR: 135 100% PMHR: 159 METS: na Technologist Comment: Stress Test Results/Findings: At baseline EKG showed ormal sinus rhythm, normal axis,nonspecific T-wave inversions in aVL, AVR, V1 Patient recieved IV infusion of Lexiscan 0.4mg and at peak infusion EKG showed o significant EKG changes from baseline. Conclusions: 1. Normal EKG response to Lexiscan infusion 2. Nuclear imaging to be reported separately. MTDD
[2020-08-07] MEDS ORDERED: ASPIRIN 325 MG TAB PO SCH (09:30)
--- NOTE | 2020-08-07 10:46 | P.PN ---
Subjective Progress Note Date: 08/07/20 HISTORY OF PRESENT ILLNESS: Patient underwent Lexiscan stress test yesterday revealing apical left ventricular myocardial ischemia. Echocardiogram completed revealed ejection fraction between 55 and 60%, [id number] mitral regurgitation, mild tricuspid regurgitation, and mild pulmonary hypertension. Patient currently denies chest pain or pressure. Denies shortness of breath. Denies dizziness or lightheadedness. Vital signs are stable.Heart rate remains in the 50s. PHYSICAL EXAM: VITAL SIGNS: Reviewed. GENERAL: Well-developed in no acute distress. NECK: Supple. No JVD or thyromegaly LUNGS: Respirations even and unlabored. Lungs essentially clear to auscultation bilaterally. HEART: Regular rate and rhythm. S1 and S2 heard. EXTREMITIES: Normal range of motion. No clubbing or cyanosis. Peripheral pulses intact. No lower extremity edema ASSESSMENT: Chest pain Abnormal stress test Asymptomatic sinus bradycardia Hyperlipidemia, controlled PLAN: Continue current cardiac medications Patient scheduled for heart catheterization tomorrow with Dr. Gentile Nurse practitioner note has been reviewed by physician. Signing provider agrees with the documented findings, assessment, and plan of care. Objective - Vital Signs Vital signs: Vital Signs Temp 97.6 F 08/07/20 07:52 Pulse 55 L 08/07/20 07:52 Resp 16 08/07/20 09:00 BP 110/69 08/07/20 07:52 Pulse Ox 97 08/07/20 07:52 Intake & Output 08/06/20 08/07/20 08/07/20 18:59 06:59 18:59 Intake Total 300 240 Balance 300 240 Weight 68.04 kg Intake: Oral 300 240 Other: Voiding Method Toilet Toilet Toilet # Voids 2 1 # Bowel Movements 2 - Labs CBC & Chem 7: 08/05/20 20:48 08/05/20 20:48
--- NOTE | 2020-08-07 11:27 | P.PN ---
Subjective Progress Note Date: 08/07/20 This is a 60-year-old female with past medical history of hyperlipidemia, hyperglycemia, psoriasis, migraines, extensive ex-smoker; smoked 1-1/2 packs per day 22 years, presented to the ER with complaints of chest pain accompanied by shortness of breath. Patient stated she was standing up in the kitchen "salad spinning", developed abrupt left-sided nonradiating "tight" chest pain with grasping shortness of breath accompanied by nausea and generalized weakness. Attempted to lie down with no improvement, 2-3 minutes and presented to the ER. States she was also cooking with some spices and wondered if maybe it was an ALLERGIC reaction. Patient also reported developing a migraine post episode and took a fioicet prior to arrival. Denies vomiting, abdominal pain, cough, congestion, fever or chills. Chest x-ray reported mild pleural scarring of the lung apexes, no acute lung disease. EKG reported sinus bradycardia with left axis deviation. Troponin is negative 2, third pending. Chemistry, coagulation, hematology unremarkable. Echo pending. 08/07/2020 underwent Lexiscan stress test yesterday reporting apical left ventricular myocardial ischemia. Echo completed reporting normal LV function, EF 55-60%, [id number] mitral regurgitation, mild pulmonary hypertension, mild tricuspid regurgitation, mild aortic valve sclerosis. Asymptomatic bradycardia, heart rate in the 50s. Denies chest pain, palpitations or shortness of breath. Denies lightheadedness dizziness or focal deficits. Scheduled for cardiac catheterization tomorrow. Objective - Vital Signs Vital signs: Vital Signs Temp 97.6 F 08/07/20 07:52 Pulse 55 L 08/07/20 07:52 Resp 16 08/07/20 07:52 BP 110/69 08/07/20 07:52 Pulse Ox 97 08/07/20 07:52 Intake & Output 08/06/20 08/07/20 08/07/20 18:59 06:59 18:59 Intake Total 300 Balance 300 Weight 68.04 kg Intake: Oral 300 Other: Voiding Method Toilet Toilet # Voids 2 1 # Bowel Movements 2 - Exam PHYSICAL EXAM: VITAL SIGNS: [As above] GENERAL: Alert and oriented 3, Sitting up in chair, no acute distress HEENT: Conjunctivae normal. eyes normal. Oral mucosa moist NECK: No JVD. No thyroid enlargement. No LNs CARDIOVASCULAR: S1, S2 regular. No murmur RESPIRATION: Unlabored ,Breath sounds diminished in the bases. ABDOMEN: Soft, nontender . No guarding. no masses palpable. Bowel sounds heard. LEGS: No edema. no swelling. NERVOUS SYSTEM: Cranial N 2-12 grossly normal. Moves all 4 limbs. No focal deficits. Strength and sensation grossly intact. Skin: Warm and dry, no rash - Labs CBC & Chem 7: 08/05/20 20:48 08/05/20 20:48 Assessment and Plan Assessment: Acute Chest pain with accompanying shortness of breath, abnormal Lexiscan, cardiac catheterization pending. Sinus bradycardia, asymptomatic [id number] mitral regurgitation Mild pulmonary hypertension Hyperlipidemia History of extensive smoking, 1-1/2 packs per day 22 years. Plan: Continue on current medication regime ,monitoring and symptomatic treatment. Scheduled for cardiac cath tomorrow. Questions and concerns addre ssed. Support given. The impression and plan of care has been dictated as directed. : I performed a history and examination of this patient, discussed the same with the dictator. I agree with the dictator's note ,documented as a scribe. Any additional findings or plans will be noted.
[2020-08-07] MEDS ORDERED: SODIUM CHLORIDE 0.9% 1,000 ML in EMPTY BAG 1 BAG IV ONE (18:00)
[2020-08-07] MEDS: ATORVASTATIN 10 MG TAB PO SCH (22:42)
[2020-08-08] MEDS ORDERED: ATORVASTATIN 80 MG TAB PO ONE ×2 (05:00→06:00)
[2020-08-08] MEDS ORDERED: ASPIRIN 325 MG TAB PO ONE ×2 (05:00→06:00)
[2020-08-08 06:04] LABS: Glucose,Whole Blood 96 mg/dL (75-99)
[2020-08-08] MEDS: PANTOPRAZOLE 40 MG/10 ML VIAL IVP SCH (06:04)
[2020-08-08 06:14] VITALS: TEMP 97.3
[2020-08-08] MEDS: ASPIRIN 81 MG PO SCH (07:31)
[2020-08-08 07:49] LABS: Basophils % (A) 1 %; Eosinophils # (A) 0.1 k/uL (0-0.7); Eosinophils % (A) 2 %; HCT 40.6 % (34.0-46.0); HGB 13.1 gm/dL (11.4-16.0); Lymphocytes # (A) 1.4 k/uL (1.0-4.8); Lymphocytes % (A) 34 %; MCH 29.9 pg (25.0-35.0); MCHC 32.3 g/dL (31.0-37.0); MCV 92.6 fL (80.0-100.0); Mean Platelet Volume 8.7; Monocytes # (A) 0.3 k/uL (0-1.0); Monocytes % (A) 7 %; Neutrophils # (A) 2.3 k/uL (1.3-7.7); Neutrophils % (A) 55 %; Platelet Count 158 k/uL (150-450); RBC 4.38 m/uL (3.80-5.40); RDW 12.8 % (11.5-15.5); WBC 4.2 k/uL (3.8-10.6)
[2020-08-08 08:01] LABS: Calcium 8.5 mg/dL (8.4-10.2); Potassium 3.9 mmol/L (3.5-5.1)
[2020-08-08] MEDS ORDERED: Potassium Replacement Protocol 1 EACH MISC MISCELLANE PRN (08:43)
--- NOTE | 2020-08-08 08:48 | P.PN ---
Subjective Progress Note Date: 08/08/20 This is a 60-year-old female with past medical history of hyperlipidemia, hyperglycemia, psoriasis, migraines, extensive ex-smoker; smoked 1-1/2 packs per day 22 years, presented to the ER with complaints of chest pain accompanied by shortness of breath. Patient stated she was standing up in the kitchen "salad spinning", developed abrupt left-sided nonradiating "tight" chest pain with grasping shortness of breath accompanied by nausea and generalized weakness. Attempted to lie down with no improvement, 2-3 minutes and presented to the ER. States she was also cooking with some spices and wondered if maybe it was an ALLERGIC reaction. Patient also reported developing a migraine post episode and took a fioicet prior to arrival. Denies vomiting, abdominal pain, cough, congestion, fever or chills. Chest x-ray reported mild pleural scarring of the lung apexes, no acute lung disease. EKG reported sinus bradycardia with left axis deviation. Troponin is negative 2, third pending. Chemistry, coagulation, hematology unremarkable. Echo pending. 08/07/2020 underwent Lexiscan stress test yesterday reporting apical left ventricular myocardial ischemia. Echo completed reporting normal LV function, EF 55-60%, [id number] mitral regurgitation, mild pulmonary hypertension, mild tricuspid regurgitation, mild aortic valve sclerosis. Asymptomatic bradycardia, heart rate in the 50s. Denies chest pain, palpitations or shortness of breath. Denies lightheadedness dizziness or focal deficits. Scheduled for cardiac catheterization tomorrow. 08/08/2020 NPO, cardiac cath scheduled for today. Telemetry sinus bradycardia, heart rates in the 50s,VSS. No further chest pressure, chest pain, palpitations or shortness of breath. Denies lightheadedness, dizziness or focal deficits. Did not sleep well. Objective - Vital Signs Vital signs: Vital Signs Temp 97.3 F L 08/08/20 06:08 Pulse 53 L 08/08/20 06:08 Resp 16 08/08/20 06:08 BP 132/75 08/08/20 06:08 Pulse Ox 97 08/08/20 06:08 Intake & Output 08/07/20 08/08/20 08/08/20 18:59 06:59 18:59 Intake Total 940 Balance 940 Intake: Oral 940 Other: Voiding Method Toilet Toilet # Voids 1 2 # Bowel Movements 1 - Exam PHYSICAL EXAM: VITAL SIGNS: [As above] GENERAL: Pleasant 60-year-old female, sitting up in bed, smiling, visiting with spouse at bedside, alert and oriented 3, no acute distress HEENT: Conjunctivae normal. eyes normal. Oral mucosa dry. NECK: No JVD. No thyroid enlargement. No LNs CARDIOVASCULAR: S1, S2 regular. No murmur RESPIRATION: Unlabored , essentially clear with breath sounds diminished in the bases. ABDOMEN: Soft, nontender . No guarding. Positive Bowel sounds. LEGS: No edema. no swelling. NERVOUS SYSTEM: Cranial N 2-12 grossly intact. Moves all 4 limbs. No focal deficits. Strength and sensation grossly intact. Skin: Warm and dry, no rash - Labs CBC & Chem 7: 08/08/20 07:11 08/08/20 07:11 Assessment and Plan Assessment: Acute Chest pain with accompanying shortness of breath, abnormal Lexiscan, cardiac catheterization pending. Sinus bradycardia, asymptomatic Rahe-[id number]-[id number] mitral regurgitation Mild pulmonary hypertension Hyperlipidemia History of extensive smoking, 1-1/2 packs per day 22 years. Plan: Continue on current medication regime ,monitoring and symptomatic treatment. NPO,scheduled for cardiac cath today. Magnesium level ordered/pending. at bedside, questions and concerns addressed.Support given. Follow closely with cardiology. The impression and plan of care has been dictated as directed. : I performed a history and examination of this patient, discussed the same with the dictator. I agree with the dictator's note ,documented as a scribe. Any additional findings or plans will be noted.
[2020-08-08 10:29] VITALS: PULSE 48
[2020-08-08] MEDS ORDERED: VERAPAMIL 2.5 MG/ML 2 ML AMP ONE (11:10)
[2020-08-08] MEDS ORDERED: IV FLUID CONTINUATION 1,000 ML IV ONE (11:10)
[2020-08-08] MEDS ORDERED: fentaNYL (PF) 50 MCG/ML 2 ML AMP ONE (11:11)
[2020-08-08] MEDS ORDERED: LIDOCAINE 1% INJ 10MG/ML (20 ML MDV) ONE (11:11)
[2020-08-08] MEDS ORDERED: LIDOCAINE 1% INJ 10MG/ML (20 ML MDV) SQ ONE (11:20)
[2020-08-08] MEDS ORDERED: fentaNYL (PF) 50 MCG/ML 2 ML AMP IV ONE (11:20)
[2020-08-08] MEDS ORDERED: MIDAZOLAM 2 MG/2 ML VIAL IV ONE (11:20)
[2020-08-08] MEDS ORDERED: VERAPAMIL SYRINGE (5 MG/10 ML) INTRAARTER ONE (11:25)
[2020-08-08] MEDS ORDERED: HEPARIN SODIUM 1,000 UN/ML (10ML VL) ONE (11:26)
[2020-08-08] MEDS ORDERED: HEPARIN SODIUM 1,000 UN/ML (10ML VL) IV ONE (11:28)
[2020-08-08] MEDS ORDERED: IOPAMIDOL-370 125ML BTL INJ ONE (11:33)
[2020-08-08] MEDS ORDERED: RX INFO: IV CONTRAST WAS GIVEN 1 EACH MISC MISCELLANE PRN (11:37)
--- NOTE | 2020-08-08 11:37 | P.CARDCATH ---
Date of Procedure: 08/08/20 Description of Procedure: PROCEDURES PERFORMED: Left heart catheterization bilateral coronary angiography INDICATION: Abnormal stress test HISTORY: Patient is a pleasant 60-year-old female with history of hypertension who presented with severe chest pain. She had normal troponins however had a stress test which showed concern of apical reversible ischemia. Therefore she was recommended to have a heart catheterization. CONSENT:I have discussed the risks, benefits and alternative therapies for the above-mentioned procedure and for both sedation/analgesia as well as necessary blood product administration, if indicated, as they pertain to this patient. The patient has indicated understanding and acceptance of the risks and procedures discussed. PROCEDURE: After the risks, benefits and alternatives of the above mentioned procedure explained in detail with the patient, informed consent was obtained. Patient was taken to the catheterization lab and prepped and draped in usual fashion. 1% lidocaine was used to anesthetize the right radial artery. A 6- Burmese sheath was placed in the right radial artery using modified Seldinger technique. Left coronary angiography was performed with a 5-Burmese JL 3.5 catheter and right coronary angiography was performed with a 5-Burmese JR5 catheter in various views. The FL 3.5 catheter had been inserted in the left ventricle and pressure measurements were obtained. The patient tolerated the procedure well. Patient was transported back to the post catheterization holding area in stable condition. Conscious Sedation: Patient was monitored under the direct supervision of vision of myself for conscious sedation using 1 mg Versed and 25 mcg fentanyl for a total duration of 16 minutes HEMODYNAMICS: Aorta: 146/76 LV: 142/4, LVEDP 15 SELECTIVE CORONARY ARTERIOGRAPHY: LEFT MAIN: The left main is a large caliber vessel which bifurcates into the LAD and circumflex. There is no significant stenosis. LEFT ANTERIOR DESCENDING CORONARY ARTERY: LAD is a large caliber vessel which wraps around to the apex. There is no significant stenosis. LEFT CIRCUMFLEX CORONARY ARTERY: Left circumflex is a moderate caliber vessel without significant stenosis. RIGHT CORONARY ARTERY: The right coronary artery is a large caliber vessel which gives off a PDA and PLV branch and is the dominant vessel. There is no significant stenosis. FINAL IMPRESSION: 1. Normal coronary arteries as described above. 2. Normal left-sided pressures PLAN: 1. Aggressive risk factor modification per most recent ACC/AHA guidelines. 2. Patient stable for discharge home from a cardiac standpoint. Follow-up in office in 1-2 weeks.
--- NOTE | 2020-08-08 14:42 | P.DS ---
Providers Date of admission: 08/06/20 16:02 Expected date of discharge: 08/08/20 Attending physician: Haseeb Harp Consults: 08/05/20 22:11 Consult Physician Urgent Consulting Provider: [facility] Consult Reason/Comments: chest tightness, short of breath Do you want consulting provider notified?: Yes Primary care physician: Haseeb Harp [facility] Course: Final Diagnoses: Acute Chest pain with accompanying shortness of breath, abnormal Lexiscan, cardiac catheterization pending. Normal coronaries reported per cardiac cath. Sinus bradycardia, asymptomatic [id number] mitral regurgitation Mild pulmonary hypertension Hyperlipidemia History of extensive smoking, 1-1/2 packs per day 22 years. Hospital course:This is a 60-year-old female with past medical history of hyperlipidemia, hyperglycemia, psoriasis, migraines, extensive ex-smoker; smoked 1-1/2 packs per day 22 years, presented to the ER with complaints of chest pain accompanied by shortness of breath. Patient stated she was standing up in the kitchen "salad spinning", developed abrupt left-sided nonradiating "tight" chest pain with grasping shortness of breath accompanied by nausea and generalized weakness. Attempted to lie down with no improvement, 2-3 minutes and presented to the ER. States she was also cooking with some spices and wondered if maybe it was an ALLERGIC reaction. Patient also reported developing a migraine post episode and took a fioicet prior to arrival. Denies vomiting, abdominal pain, cough, congestion, fever or chills. Chest x-ray reported mild pleural scarring of the lung apexes, no acute lung disease. EKG reported sinus bradycardia with left axis deviation. Troponin is negative 2, third pending. Chemistry, coagulation, hematology unremarkable. Echo pending. 08/07/2020 underwent Lexiscan stress test yesterday reporting apical left ventricular myocardial ischemia. Echo completed reporting normal LV function, EF 55-60%, [id number] mitral regurgitation, mild pulmonary hypertension, mild tricuspid regurgitation, mild aortic valve sclerosis. Asymptomatic bradycardia, heart rate in the 50s. Denies chest pain, palpitations or ally rtness of breath. Denies lightheadedness dizziness or focal deficits. Scheduled for cardiac catheterization tomorrow. 08/08/2020 NPO, cardiac cath scheduled for today. Telemetry sinus bradycardia, heart rates in the 50s,VSS. No further chest pressure, chest pain, palpitations or shortness of breath. Denies lightheadedness, dizziness or focal deficits. Did not sleep well. Continue cardiac catheterization, reporting normal coronary arteries, normal left-sided pressures .tolerated well. Aggressive risk factor modification advised. Cleared by cardiology for discharge. Patient will be discharged home today in a stable condition with guarded prognosis. The impression and plan of care has been dictated as directed. : I performed a history and examination of this patient, discussed the same with the dictator. I agree with the dictator's note ,documented as a scribe. Any additional findings or plans will be noted. Patient Condition at Discharge: Stable Plan - Discharge Summary Discharge Rx Participant: No New Discharge Prescriptions: Continue Butalb/Acetaminophen/Caffeine [Fioricet 50-300-40 mg Capsule] 1 tab PO DAILY PRN PRN Reason: Migraine Headache Cholecalciferol [Vitamin D3 (25 Mcg = 1000 Iu)] 1,000 unit PO DAILY Atorvastatin [Lipitor] 10 mg PO HS [place]-3 Fatty Acids/Fish Oil [Fish Oil 1,000 mg Softgel] 1 cap PO DAILY Biotin 5 mg PO DAILY Vitamin E 100 unit PO DAILY Discharge Medication List Butalb/Acetaminophen/Caffeine [Fioricet 50-300-40 mg Capsule] 1 tab PO DAILY PRN 08/18/16 [History] Atorvastatin [Lipitor] 10 mg PO HS 08/29/18 [History] Biotin 5 mg PO DAILY 08/29/18 [History] Cholecalciferol [Vitamin D3 (25 Mcg = 1000 Iu)] 1,000 unit PO DAILY 08/29/18 [History] [place]-3 Fatty Acids/Fish Oil [Fish Oil 1,000 mg Softgel] 1 cap PO DAILY 08/29/18 [History] Vitamin E 100 unit PO DAILY 08/05/20 [History] Follow up Appointment(s)/Referral(s): Haseeb Harp DO [Primary Care Provider] - 3 Days Patient Instructions/Handouts: How to Stop Smoking (DC) Activity/Diet/Wound Care/Special Instructions: Confirm cardiology follow-up appointment prior to discharge.
[2020-08-08 16:49] VITALS: BP 130/68
== END 2020-08-08 19:18 | disposition home or self-care (01) | DRG 287 ==
LOC: EC 19:53 → 3NCARDOBS 21:46 → OBSVTOIN 08-06 16:02
PROVIDERS: ADMIT Family Medicine; ATTEND Family Medicine
PROC: B2111ZZ Fluoroscopy of Multiple Coronary Arteries using Low Osmolar Contrast (ICD-10-PCS; principal; 2020-08-08 09:00)
PROC: 4A023N7 Measurement of Cardiac Sampling and Pressure, Left Heart, Percutaneous Approach (ICD-10-PCS; principal; 2020-08-08 09:00)
DX: R07.89 Other chest pain (principal); E78.5 Hyperlipidemia, unspecified; G43.909 Migraine, unspecified, not intractable, without status migrainosus; L40.9 Psoriasis, unspecified; I27.20 Pulmonary hypertension, unspecified; I08.0 Rheumatic disorders of both mitral and aortic valves; R00.1 Bradycardia, unspecified; Z87.891 Personal history of nicotine dependence; Z79.82 Long term (current) use of aspirin; Z79.899 Other long term (current) drug therapy; Z91.011 Allergy to milk products; Z88.2 Allergy status to sulfonamides; Z91.018 Allergy to other foods; Z91.09 Other allergy status, other than to drugs and biological substances; Z90.710 Acquired absence of both cervix and uterus; Z98.891 History of uterine scar from previous surgery; Z98.890 Other specified postprocedural states; Z82.49 Family history of ischemic heart disease and other diseases of the circulatory system
CPT/HCPCS: 36415; 71046; 78452; 80048; 80053; 80061; 83735; 83880; 84484; 85025; 85610; 85730; 93005; 93017; 93306; 93458; 96360; 96361; 99285

== ENCOUNTER → 2020-10-25 | Outpatient (CLI) | payer BC ==
--- NOTE | 2020-10-29 09:35 | MM ---
Reason for exam: screening (asymptomatic). Last mammogram was performed 2 years and 2 months ago. History: Patient is postmenopausal. Took progesterone beginning at age 39. Physical Findings: A clinical breast exam by your physician is recommended on an annual basis and results should be correlated with mammographic findings. MG Screening Mammo w CAD Bilateral CC and MLO view(s) were taken. Prior study comparison: August 25, 2018, mammogram, performed at [facility]. January 15, 2015, bilateral MG screening mammo w CAD. September 07, 2012, mammogram, performed at [facility]. There are scattered fibroglandular densities. There are benign appearing round calcifications bilaterally. There is no discrete abnormality. ASSESSMENT: Benign, BI-RAD 2 RECOMMENDATION: Routine screening mammogram of both breasts in 1 year.
== END | disposition home or self-care (01) ==
LOC: RADMAMWWP 09:54
PROVIDERS: ATTEND Obstetrics & Gynecology
DX: Z12.31 Encounter for screening mammogram for malignant neoplasm of breast (principal)
CPT/HCPCS: 77067

== ENCOUNTER → 2021-02-01 | Outpatient (CLI) | payer BC | END | disposition home or self-care (01) | LOC: LABWHC1 15:42 | PROVIDERS: ATTEND Family Medicine | DX: Z20.822 Contact with and (suspected) exposure to COVID-19 (principal) | CPT/HCPCS: U0003; C9803; U0005 ==

== ENCOUNTER → 2022-09-24 | Outpatient (CLI) | payer BC ==
--- NOTE | 2022-09-24 12:18 | BD ---
EXAMINATION TYPE: Axial Bone Density DATE OF EXAM: 09/24/2022 COMPARISON: NONE CLINICAL HISTORY: 62 years year old Female. ICD-10 CODE: Z78.0 ASYMPTOMATIC MENOPAUSAL STATE Height: 5 FT 6 IN Weight: 148 FRAX RISK QUESTIONS: Alcohol (3 or more units per day): NO Family History (Parent hip fracture): YES Glucocorticoids (More than 3mos): NO (Ex: prednisone, prednisolone, methylprednisolone, dexamethasone, and hydrocortisone). History of Fracture in Adulthood: YES Secondary Osteoporosis: 1. Type 1 Diabetes: NO 2. Hyperthyroidism: NO 3. Menopause before 45: YES 4. Malnutrition: NO 5. Chronic liver disease: NO Rheumatoid Arthritis: NO Current Tobacco Use: NO RISK FACTORS HISTORY OF: History of Wrist Fracture: FREDA WRIST BX When: 2014 Surgery to Spine/Hip(right/left)/Wrist (right/left): BX OF BONE LUMBAR Family History of Osteoporosis: NO Active: YES Diet low in dairy products/other sources of calcium: NO Postmenopausal woman: YES Take estrogen and/or progesterone medications: NO Lost more than 2 inches in height since high school: NO Frequent falls: NO Poor Health: GOOD Hyperparathyroidism: NO Adrenal Insufficiency: NO MEDICATIONS: Additional Medications: ATORVASTATIN, FEORICET Additional History: EXAM MEASUREMENTS: Bone mineral densitometry was performed using the [employer] System. Bone mineral density as measured about the Lumbar spine is: ----- L1-L4(G/cm2): 0.889 T Score Values are as follows: ----- L1: -2.9 ----- L2: -2.4 ----- L3: -1.9 ----- L4: -2.6 ----- L1-L4: -2.8 Bone mineral density has: DECREASED -6.6 % since study of: 2014 Bone mineral density about the R hip (g/cm2): 0.848 Bone mineral density about the L hip (g/cm2): 0.804 T Score values are as follows: -----R Neck: -1.4 -----L Neck: -1.7 -----R Total: -1.5 -----L Total: -1.6 Bone mineral density has: DECREASED -7.0 % since study of: 2014 FRAX%s: The graph provided illustrates a 9.1 % chance for a major osteoporotic fx and a 1.0 % chance for the hips probability for fx in 10 years time. IMPRESSION: Osteoporosis (T Score less than -2.5). There is increased fracture risk and therapy is usually indicated based on age. Re-Screen 1-2 years. NOTE: T-SCORE=SD OF THE YOUNG ADULT MEAN.
== END | disposition home or self-care (01) ==
LOC: RADBDWWP 10:12
PROVIDERS: ATTEND Obstetrics & Gynecology
DX: M81.0 Age-related osteoporosis without current pathological fracture (principal); M85.89 Other specified disorders of bone density and structure, multiple sites; Z78.0 Asymptomatic menopausal state
CPT/HCPCS: 77080

== ENCOUNTER → 2023-07-03 | Outpatient (CLI) | payer BC ==
[2023-07-03 10:47] LABS: HGB 13.7 d/dL (12.0-15.0); MCH 28.7 pg (27.0-32.0); MCHC 31.9 d/dL (32.0-37.0); MCV 90.1 FL (80.0-97.0); Mean Platelet Volume 11.2 FL (9.5-12.2); NRBC Per 100 WBC 0 X 10*3/uL (0.00-0.01); Platelet Count 223 X 10*3/uL (140-440); RBC 4.77 X 10*6/uL (4.10-5.20); RDW 13.4 % (11.5-14.5); WBC 9.66 X 10*3/uL (4.50-10.00)
[2023-07-03 11:14] LABS: ALT 28 U/L (8-44); AST 27 U/L (13-35); Albumin 4.4 d/dL (3.8-4.9); Alkaline Phosphatase 59 U/L (41-126); Calcium 9.1 mg/dL (8.7-10.3); Carbon Dioxide 25.7 mmol/L (21.6-31.8); Chloride 104 mmol/L (96-109); Chol/HDL Ratio 3.04 Ratio; Glucose 112 mg/dL (70-110); LDL Cholesterol,Calculated 149.9 mg/dL (0.0-131.0); Potassium 4.6 mmol/L (3.5-5.5); Sodium 139 mmol/L (135-145); Total Bilirubin 0.2 mg/dL (0.3-1.2); Total Protein 6.4 d/dL (6.2-8.2); VLDL Calculation 13.18 mg/dL (5.00-40.00)
== END | disposition home or self-care (01) ==
LOC: LABWHC1 07:25
PROVIDERS: ATTEND Family Medicine
DX: Z00.00 Encounter for general adult medical examination without abnormal findings (principal)
CPT/HCPCS: 36415; 80053; 80061; 84443; 85027

== ENCOUNTER → 2024-03-31 | Outpatient (CLI) | payer BC ==
--- NOTE | 2024-04-05 13:58 | MM ---
Reason for Exam: Screening (asymptomatic). Last mammogram was performed 3 year(s) and 5 month(s) ago. Patient History: Menarche at age 10. First Full-Term at age 20. Left ovary removed at age 39. Right ovary removed at age 39. Hysterectomy at age 39. Postmenopausal. Patient has history of breast feeding. Progesterone, from age 39 until age 40. Risk Values: Lauren 5 year model risk: 1.6%. NCI Lifetime model risk: 6.4%. Prior Study Comparison: 01/15/2015 Bilateral Screening Mammogram, [facility]. 08/25/2018 Screening Mammogram, [facility]. 10/25/2020 Bilateral Screening Mammogram, [facility]. Tissue Density: There are scattered areas of fibroglandular density. Findings: Analyzed By CAD. Right breast: There is no suspicious group of microcalcifications or new suspicious mass. Left breast: There is no suspicious group of microcalcifications or new suspicious mass. Overall Assessment: Negative, BI-RAD 1 Management: Screening Mammogram of both breasts in [address] [facility] will attempt to contact patient to return for supplemental views and ultrasound if indicated. Patient should continue monthly self-breast exams. A clinical breast exam by your physician is recommended on an annual basis. This exam should not preclude additional follow-up of suspicious palpable abnormalities. Note on Lauren scores and lifetime risk: 1. A Lauren score greater than 3% is considered moderate risk. If this is the case, consider specialist referral to assess eligibility for a risk reducing agent. 2. If overall lifetime risk for the development of breast cancer is 20% or higher, the patient may qualify for future screening with alternating mammogram and breast MRI. Electronically signed and approved by: Pedro Machado DO
== END | disposition home or self-care (01) ==
LOC: RADMAMWWP 10:53
PROVIDERS: ATTEND Family Medicine
DX: Z12.31 Encounter for screening mammogram for malignant neoplasm of breast (principal); Z78.0 Asymptomatic menopausal state
CPT/HCPCS: 77063; 77067

== ENCOUNTER → 2024-08-12 | Outpatient (CLI) | payer BC, MEDICARE ==
[2024-08-12 15:10] LABS: Basophils # (A) 0.06 X 10*3/uL (0.00-0.10); Basophils % (A) 1.4 %; Eosinophils # (A) 0.08 X 10*3/uL (0.04-0.35); Eosinophils % (A) 1.8 %; HGB 13.7 g/dL (12.0-15.0); Lymphocytes # (A) 1.24 X 10*3/uL (0.90-5.00); Lymphocytes % (A) 28.1 %; MCH 29.7 pg (27.0-32.0); MCHC 31.9 g/dL (32.0-37.0); MCV 93.1 FL (80.0-97.0); Mean Platelet Volume 12.3 FL (9.5-12.2); Monocytes # (A) 0.46 X 10*3/uL (0.20-1.00); Monocytes % (A) 10.4 %; NRBC Per 100 WBC 0 X 10*3/uL (0.00-0.01); Neutrophils # (A) 2.55 X 10*3/uL (1.80-7.70); Neutrophils % (A) 57.8 %; Platelet Count 208 X 10*3/uL (140-440); RBC 4.62 X 10*6/uL (4.10-5.20); RDW 13.2 % (11.5-14.5); WBC 4.41 X 10*3/uL (4.50-10.00)
[2024-08-12 15:36] LABS: ALT 24 U/L (8-44); AST 23 U/L (13-35); Albumin 4.2 g/dL (3.8-4.9); Albumin/Globulin Ratio 1.91 Ratio (1.60-3.17); Alkaline Phosphatase 66 U/L (41-126); BUN/Creat Ratio 14.56 Ratio (12.00-20.00); Blood Urea Nitrogen 13.1 mg/dL (9.0-27.0); Calcium 9.4 mg/dL (8.7-10.3); Carbon Dioxide 27.7 mmol/L (21.6-31.8); Chloride 107 mmol/L (96-109); Globulin 2.2 g/dL (1.6-3.3); Glucose 82 mg/dL (70-110); LDL Cholesterol,Calculated 153.5 mg/dL (0.0-131.0); Potassium 4.6 mmol/L (3.5-5.5); Sodium 144 mmol/L (135-145); Total Bilirubin 0.3 mg/dL (0.3-1.2); Total Protein 6.4 g/dL (6.2-8.2); VLDL Calculation 13.04 mg/dL (5.00-40.00)
== END | disposition home or self-care (01) ==
LOC: LABWHC1 07:41
PROVIDERS: ATTEND Family Medicine
CPT/HCPCS: 36415; 80053; 80061; 83036; 84443; 85025

== ENCOUNTER → 2025-01-30 | Outpatient (CLI) | payer MEDICARE ==
--- NOTE | 2025-02-01 22:26 | P.PCN ---
Date of Procedure: 01/30/25 Operative Findings: Home sleep study Date of service is 01/31/2024 History A 64-year-old female patient with history of obstructive sleep apnea. Based on the previous evaluation, the patient reminded of the nature of 15. During her last annual compliancy check, the patient was using her CPAP effectively and her treatment was successful. She was being treated with APAP therapy pressures of 5/15 cm of water and she was using a AirFit F20 fullface mask. Her migraine has subsided. She seems to be committed to long-term CPAP therapy. During her last evaluation, I noted a significant drop in her 95th percentile pressure delivered by the CPAP machine. Based on that, a home sleep study was ordered to reevaluate the presence and severity of sleep apnea. Pertinent physical findings The patient has a body mass index of 25 with a weight of 154 pounds. Technically description The [place] [employer] system was used to complete his home sleep study. This is a type III home sleep study evaluation. The total recording duration was 4 hours and 33 minutes. The study started 11:14 PM and ended at 3:47 AM. There was a total of 4 hours and 22 minutes of flow monitoring in 4 hours and 23 minutes of oxygen saturation monitoring. This was an adequate study Results Respiratory analysis showed a considerable number of obstructive apneas and hypopneas. There was a total of 34 obstructive apneas and 165 obstructive hypopneas at the resulting AHI was calculated to be at 45.5. This is consistent with severe DIANA Oxygenation analysis The average pulse ox was 93% during sleep with a minimum pulse ox of 82% and the patient had 9 minutes of the sleep time below pulse ox of 89% Cardiac summary Average heart rate was 47 with a minimum heart rate of 40 and the maximum heart of 73 Assessment Obstructive sleep apnea, evaluated by home sleep study and noted to have severe disease with an AHI of 45.5. Plan Recommend APAP therapy. Ongoing therapy is important especially in severity of her DIANA is getting worse over the years. She has been successfully treated with APAP therapy pressures of 5/15 cm of water. Will keep the same pressure setting and same mask interface. Will continue to follow. The patient is committed to CPAP therapy and she continues her treatment.
== END ==
LOC: 3 N SLEEP 10:55
PROVIDERS: ATTEND Internal Medicine Critical Care Medicine
DX: G47.33 Obstructive sleep apnea (adult) (pediatric) (principal); Z91.011 Allergy to milk products; Z88.2 Allergy status to sulfonamides; Z91.018 Allergy to other foods; Z91.048 Other nonmedicinal substance allergy status; Z87.891 Personal history of nicotine dependence